=== PATIENT | female | born 1950 | race Caucasian/White ===

== ENCOUNTER 2022-12-12 08:20 | Emergency (ER) | payer MEDICARE, BC ==
[~2022-12-12] VITALS: Ht 160 cm; Wt 50.0 kg
--- NOTE | 2022-12-12 08:30 | NUR ---
DR HORNE AWARE PATIENT FELL WITH HEADSTRIKE ON ASPIRIN AND ALOC.
[2022-12-12] MEDS ORDERED: ondansetron/PF 4mg/2ml inj IV ONE (08:45)
[2022-12-12] MEDS ORDERED: normal saline 1000ML IV soln IVB ONE (08:45)
--- NOTE | 2022-12-12 08:48 | NUR ---
ATTEMPT EKG, PT TO CT AT THE MOMENT.
[2022-12-12 08:59] LABS: BASOPHILS # (AUTO) 0.1 X10'3 (0-0.2); BASOPHILS % (AUTO) 0.8 % (0-1); EOSINOPHILS % (AUTO) 0.1 % (0-6); HEMATOCRIT 41.1 % (35.0-45.0); HEMOGLOBIN 13.9 g/dl (12.0-16.0); LYMPHOCYTES # (AUTO) 0.6 X10'3 (1.1-4.8); LYMPHOCYTES % (AUTO) 5.5 % (21-51); MEAN CORPUSCULAR HEMOGLOBIN 33.5 PG (27.0-31.0); MEAN CORPUSCULAR HGB CONC 33.8 g/dL (33.0-36.5); MEAN CORPUSCULAR VOLUME 99.2 FL (78-98); MEAN PLATELET VOLUME 7.3 FL (7.4-10.4); MONOCYTES # (AUTO) 0.6 X10'3 (0-0.9); MONOCYTES % (AUTO) 5.7 % (2-12); NEUTROPHILS # (AUTO) 9.1 X10'3 (1.8-7.7); NEUTROPHILS % (AUTO) 87.9 % (42-75); PLATELET COUNT 198 X10'3 (140-440); RED BLOOD COUNT 4.14 X10'6 (4.20-5.60); RED CELL DISTRIBUTION WIDTH 13.3 % (11.5-14.5); WHITE BLOOD COUNT 10.3 X10'3 (4.5-11.0)
[2022-12-12] MEDS ORDERED: LIDOcaine 1% W/epiNEPHrine 1:100,000 20ml vial IJ ONE (09:00)
[2022-12-12 09:16] LABS: ALANINE AMINOTRANSFERASE 20 U/L (12-78); ALBUMIN 3.7 G/DL (3.4-5.0); ALBUMIN/GLOBULIN RATIO 1.1 (1.1-1.5); ALKALINE PHOSPHATASE 93 IU/L (46-116); ANION GAP 9 (8-16); ASPARTATE AMINO TRANSFERASE 23 U/L (10-37); BLOOD UREA NITROGEN 15 MG/DL (7-18); CALCIUM 9.2 MG/DL (8.5-10.1); CHLORIDE 102 MMOL/L (99-107); CREATININE 0.75 MG/DL (0.40-0.90); ETHANOL < 0.010 GM/DL (0.0-0.010); GLUCOSE 151 MG/DL (70-104); POTASSIUM 4.4 MMOL/L (3.5-5.1); SODIUM 138 MMOL/L (135-145); TOTAL CARBON DIOXIDE 27.1 MMOL/L (24-32); eGFR 76 ML/MIN
[2022-12-12] MEDS ORDERED: DESMOPRESSIN IV ONE (09:25)
[2022-12-12] MEDS ORDERED: NORMAL SALINE IV ONE (09:25)
[2022-12-12 09:28] VITALS: BP 165/76
[2022-12-12 09:48] LABS: D-DIMER > 35.20 MG/L FEU (0-0.50)
--- NOTE | 2022-12-12 09:49 | NUR ---
Report given to Donya ROBERTSON
== END 2022-12-12 18:41 | disposition short-term general hospital (02) ==
LOC: ER 08:21
DX: S01.01XA Laceration without foreign body of scalp, initial encounter (principal); E78.00 Pure hypercholesterolemia, unspecified; Z88.8 Allergy status to other drugs, medicaments and biological substances; Z88.0 Allergy status to penicillin; W18.39XA Other fall on same level, initial encounter; Y93.89 Activity, other specified; Y92.89 Other specified places as the place of occurrence of the external cause; Y99.8 Other external cause status
CPT/HCPCS: 12002; 36415; 70450; 71045; 72125; 80053; 80320; 84484; 85025; 85379; 85610; 93005; 96361; 96374; 99285; J2405; J3490; J7030; L0172